=== PATIENT | male | born 1995 | race African-American/Black ===

== ENCOUNTER 2019-07-07 12:39 | Emergency (ER) | payer OTHER ==
[~2019-07-07] VITALS: Ht 177.8 cm; Wt 70.3 kg
[2019-07-07 12:50] VITALS: BP 117/73
--- NOTE | 2019-07-07 14:22 | Emergency Room Report ---
History of Present Illness General Chief Complaint: Flu Like Symptoms Source: Patient Present Illness HPI 23-year-old male presents to the emergency department complaining of nonpainful persistent cough only at nighttime with difficulty sleeping x2.5 weeks. Patient denies fevers or chills he reports history of family members with sleep apnea he states that he is never experienced difficulty with sleeping in the past. He reports waking up and coughing up mucus in the middle the night and in the morning. Patient states he is symptom-free during the day. He denies abdominal pain or epigastric burning sensation he denies history of acid reflux. Patient denies recent travel or ill contacts. He denies any other symptoms at this time and denies any other aggravating or relieving factors. Allergies: Coded Allergies: No Known Allergies (Unverified , 07/07/19) Patient History Past Medical History: see triage record Past Surgical History: none Pertinent Family History: none Reviewed Nursing Documentation: PMH: Agreed; PSxH: Agreed Nursing Documentation-PMH Past Medical History: No Stated History Review of Systems All Other Systems: negative except mentioned in HPI Physical Exam Vital Signs Date Time Temp Pulse Resp B/P (MAP) Pulse Ox O2 Delivery O2 Flow Rate FiO2 07/07/19 12:47 97.5 72 18 117/73 (88) 97 Room Air Sp02 EP Interpretation: reviewed, normal General Appearance: no apparent distress, alert, GCS 15, non-toxic Head: normocephalic, atraumatic Eyes: bilateral eye normal inspection, bilateral eye PERRL ENT: hearing grossly normal, normal voice, TMs + canals normal Neck: full range of motion Respiratory: chest non-tender, lungs clear, normal breath sounds, no respiratory distress, no accessory muscle use, no wheezing, speaking full sentences Cardiovascular #1: regular rate, rhythm, no edema, normal capillary refill Gastrointestinal: non tender, soft Rectal: deferred Genitourinary: normal inspection Musculoskeletal: normal range of motion, gait/station normal, non-tender Neurologic: alert, motor strength/tone normal, oriented x3, sensory intact, responsive, speech normal Psychiatric: judgement/insight normal Skin: normal color Lymphatic: no adenopathy Medical Decision Making PA Attestation Dr. Randhawa Is my supervising Physician whom patient management has been discussed with. Diagnostic Impression: Primary Impression: Nocturnal cough ER Course 23-year-old male presents to the emergency department complaining of nonpainful persistent cough only at nighttime with difficulty sleeping x2.5 weeks. Patient denies fevers or chills he reports history of family members with sleep apnea he states that he is never experienced difficulty with sleeping in the past. He reports waking up and coughing up mucus in the middle the night and in the morning. Patient states he is symptom-free during the day. He denies abdominal pain or epigastric burning sensation he denies history of acid reflux. Patient denies recent travel or ill contacts. He denies any other symptoms at this time and denies any other aggravating or relieving factors. Ddx considered but are not limited to URI, pneumonia, PE, strep pharyngitis, meningitis, bronchitis, postnasal drainage, acid reflux just name a few Vital signs: Pt. is afebrile, the remaining VS are WNL H&PE are most consistent with URI- no meningeal signs, oropharynx is not involved, no evidence of bacterial infection at this time. LUNGS are CTA bilaterally ORDERS: none required at this time, the diagnosis is clinical ED INTERVENTIONS: None required at this time. I also discussed with this patient that the most common cause of chronic cough at nighttime is acid reflux and therefore he will be treated conservatively for this. -I do not identify an emergent condition at this time. With current presentation , pt. is stable for close outpatient follow up and conservative treatment. D/ w pt. to return promptly to ED with worsening or new symptoms.- Pt. verbalizes' understanding and agreement with proposed treatment plan. DISCHARGE: At this time pt. is stable for d/c to home. Will provide printed patient care instructions, and any necessary prescriptions. Care plan and follow up instructions have been discussed with the patient prior to discharge. Last Vital Signs Date Time Temp Pulse Resp B/P (MAP) Pulse Ox O2 Delivery O2 Flow Rate FiO2 07/07/19 12:47 97.5 72 18 117/73 (88) 97 Room Air Disposition: HOME, SELF-CARE Condition: Stable Scripts No Active Prescriptions or Reported Meds Referrals: [facility] Patient Instructions: Cough, Adult, [id number], Food Choices for Gastroesophageal Reflux Disease, Adult, Medical Screening Exam Additional Instructions: ~ ~ An emergent medical condition has not been identified based on this patients presentation, exam and any necessary testing/imaging. The patient is determined to be stable for outpatient follow-up and management of symptoms by a primary care provider. Take medications as directed. Follow up with a Primary Care Provider in 3-5 days, even if your symptoms have resolved. --Please review list of primary care clinics, if you do not already have a primary care provider Return sooner to ED if new symptoms occur, or current symptoms become worse. - Please note that this Emergency Department Report was dictated using Gogoyokosensitized paper tester technology software, occasionally this can lead to erroneous entry secondary to interpretation by the dictation equipment. Nicole Molina Jul 07, 2019 14:22
[2019-07-07] MEDS ORDERED: PROMETHAZINE-D118 ML ORAL (14:23)
[2019-07-07] MEDS ORDERED: ZANTAC150 MG ORAL (14:23)
[2019-07-07 14:33] VITALS: BP 120/72
--- NOTE | 2019-07-07 14:33 | NUR ---
ER DISCHARGE NOTE: Patient is cleared to be discharged per ERMD, pt is aox4, on room air, with stable vital signs. pt was given dc and prescription instructions, pt was able to verbalize understanding, pt id removed. pt is able to ambulate with steady gait. pt took all belongings.
== END 2019-07-07 14:33 | disposition home or self-care (01) ==
LOC: EMR 13:32
DX: R05 Cough (principal)
CPT/HCPCS: 99282

== ENCOUNTER 2019-07-22 15:24 | Emergency (ER) | payer OTHER ==
[~2019-07-22] VITALS: Ht 177.8 cm; Wt 72.6 kg
[~2019-07-22 15:24] MED LIST: PROMETHAZINE-D118 ML ORAL; ZANTAC150 MG ORAL
[2019-07-22 15:26] VITALS: BP 118/72
--- NOTE | 2019-07-22 15:36 | NUR ---
ED Nurse Note: Pt from home walked in due to CP and non radiating x weeks. States dizziness but no N/V. Chest is more painful when doing an activity. AAO x4, ambulatory with non labored breathing.
--- NOTE | 2019-07-22 15:44 | Emergency Room Report ---
History of Present Illness General Chief Complaint: Chest Pain Source: Patient Present Illness HPI 23-year-old male with no segment past medical history here complaining of cough and congestion. Patient was seen at [facility] recently for similar symptoms. However no chest x-ray was done. Patient denies any recent travel, fever and chills, coming contact with patients with recent travel. Has not taken medication for symptom relief. Patient has not yet follow-up with primary care provider. Complains of minimal wheezing. Reports that the cough is worse at nighttime. Denies drug use, tobacco smoke, alcohol intake. Allergies: Coded Allergies: No Known Allergies (Unverified , 07/07/19) Patient History Past Medical History: see triage record Past Surgical History: unable to obtain Pertinent Family History: none Social History: Reports: drug use - marijuana Immunizations: UTD Reviewed Nursing Documentation: PMH: Agreed; PSxH: Agreed Nursing Documentation-PMH Past Medical History: No Stated History Review of Systems All Other Systems: negative except mentioned in HPI Physical Exam Vital Signs Date Time Temp Pulse Resp B/P (MAP) Pulse Ox O2 Delivery O2 Flow Rate FiO2 07/22/19 15:26 98.4 69 16 118/72 (87) 97 Room Air Sp02 EP Interpretation: reviewed, normal General Appearance: no apparent distress, alert, GCS 15, non-toxic Head: normocephalic, atraumatic Eyes: bilateral eye normal inspection, bilateral eye PERRL ENT: hearing grossly normal, normal pharynx, no angioedema, normal voice Neck: full range of motion, supple, thyroid normal, no meningismus, supple/symm /no masses Respiratory: chest non-tender, lungs clear, no rhonchi, no retraction, no accessory muscle use, speaking full sentences, wheezing - Minor wheezing noted diffusely Cardiovascular #1: regular rate, rhythm, no edema, no murmur, normal capillary refill Gastrointestinal: soft, no bruit Rectal: deferred Genitourinary: no CVA tenderness Musculoskeletal: back normal, no calf tenderness Neurologic: alert, motor strength/tone normal, oriented x3, sensory intact, responsive, speech normal Psychiatric: judgement/insight normal, memory normal, mood/affect normal, no suicidal/homicidal ideation Skin: no rash Lymphatic: no adenopathy Medical Decision Making PA Attestation All my diagnosis and treatment plans were reviewed ad discussed with my supervising physician Dr. Farrar Diagnostic Impression: Primary Impression: Pneumonitis ER Course 23-year-old male with no segment past medical history here complaining of cough and congestion. Patient was seen at [facility] recently for similar symptoms. However no chest x-ray was done. Patient denies any recent travel, fever and chills, coming contact with patients with recent travel. Has not taken medication for symptom relief. Patient has not yet follow-up with primary care provider. Complains of minimal wheezing. Reports that the cough is worse at nighttime. Denies drug use, tobacco smoke, alcohol intake. Ddx considered but are not limited to: bronchitis, PNA, URI viral, bacterial bronchitis, pneumonitis Vital signs: are WNL, pt. is afebrile H&PE are most consistent with: Pneumonitis. ORDERS:CXR, azithromycin, Phenergan DM for bedtime, guaifenesin, Medrol Dosepak ED INTERVENTIONS: None required at this time. DISCHARGE: At this time pt. is stable for d/c to home. Will provide printed patient care instructions, and any necessary prescriptions. Care plan and follow up instructions have been discussed with the patient prior to discharge. Take medication as directed, follow-up with your primary care provider, increase oral hydration, if worsening symptoms return to the emergency room Chest X-Ray Diagnostic Results Chest X-Ray Diagnostic Results : Chest X-Ray Ordered: Yes # of Views/Limited/Complete: 1 View Indication: Other - cough PA Xray: Interpretation reviewed, by supervising MD, and agrees with findings. Interpretation: no consolidation, no effusion, no pneumothorax Impression: No acute disease Electronically Signed by: Irais Wilkinson PA-C Last Vital Signs Date Time Temp Pulse Resp B/P (MAP) Pulse Ox O2 Delivery O2 Flow Rate FiO2 07/22/19 15:26 98.4 69 16 118/72 (87) 97 Room Air Disposition: HOME, SELF-CARE Condition: Stable Scripts Methylprednisolone (Methylprednisolone*) 4MG Dspk 4 MG ORAL DIRECTED for 6 Days, #21 EA 0 Refills Day 1: Two tablets before breakfast, one after lunch, one after dinner, and two at bedtime. If started late in the day, take all six tablets at once or divide into two or three doses, unless otherwise directed by prescriber. Day 2: One tablet before breakfast, one after lunch, one after dinner, and two at bedtime Day 3: One tablet before breakfast, one after lunch, one after dinner, and one at bedtime Day 4: One tablet before breakfast, one after lunch, and one at bedtime Day 5: One tablet before breakfast and one at bedtime Day 6: One tablet before breakfast Prov: Irais Haynes 07/22/19 Albuterol Sulfate (VENTOLIN HFA) 18 Gm Hfa.aer.ad 2 PUFFS INH EVERY 6 HOURS, #18 GM 0 Refills Prov: Irais Haynes 07/22/19 Guaifenesin* (GUAIFENESIN*) 100 Mg/5 Ml Liquid 15 ML ORAL Q6H, #120 ML 0 Refills Prov: Irais Haynes 07/22/19 D-Methorphan Hb/Prometh Hcl* (PROMETHAZINE-DM SYRUP*) 118 Ml Syrup 5 ML ORAL BEDTIME PRN for For Cough, #120 ML 0 Refills Prov: Irais Haynes 07/22/19 Azithromycin* (ZITHROMAX*) 250 Mg Tablet 250 MG ORAL DAILY, #6 TAB 0 Refills Take two tables once daily for 1 day, then one tablet once daily for 4 days. Prov: Irais Haynes 07/22/19 Patient Instructions: Nonspecific Chest Pain, Pneumonitis Additional Instructions: Take medication as directed, follow with primary care provider, increase oral hydration, if worsening symptoms return to the emergency room Irais Haynes Jul 22, 2019 15:44
[2019-07-22] MEDS ORDERED: ZITHROMAX250 MG ORAL (15:54)
[2019-07-22] MEDS ORDERED: GUAIFENESI100 MG/5 M ORAL (15:54)
[2019-07-22] MEDS ORDERED: PROMETHAZINE-D118 ML ORAL (15:54)
[2019-07-22] MEDS ORDERED: MEDROL DOSEPAK4 MG ORAL (15:54)
[2019-07-22] MEDS ORDERED: VENTOLIN HFA18 GM INH (15:54)
--- NOTE | 2019-07-22 16:05 | Diagnostic Imaging Report ---
Indication: Dyspnea Comparison: None A single view chest radiograph was obtained. Findings: Cardiomediastinal appearance is within normal limits for age. The lungs are clear. Pulmonary vascularity is appropriate. The diaphragmatic contour is smooth and costophrenic angles are sharp. No pleural effusions are identified. The bones are unremarkable. Impression: No acute findings
[2019-07-22 16:13] VITALS: BP 120/75
--- NOTE | 2019-07-22 16:13 | NUR ---
ER DISCHARGE NOTE: Patient is cleared to be discharged per ERMD, pt is aox4, on room air, with stable vital signs. pt was given dc and prescription instructions, pt was able to verbalize understanding, pt id band removed. pt is able to ambulate with steady gait. pt took all belongings.
== END 2019-07-22 16:13 | disposition home or self-care (01) ==
LOC: EMR 15:47
DX: J18.9 Pneumonia, unspecified organism (principal)
CPT/HCPCS: 71045; Z7502; 99283

== ENCOUNTER 2019-09-11 11:46 | Emergency (ER) | payer OTHER ==
[~2019-09-11] VITALS: Ht 182.9 cm; Wt 71.2 kg
[~2019-09-11 11:46] MED LIST changes: +GUAIFENESI100 MG/5 M ORAL; +MEDROL DOSEPAK4 MG ORAL; +VENTOLIN HFA18 GM INH; +ZITHROMAX250 MG ORAL
[2019-09-11 11:53] VITALS: BP 100/69
--- NOTE | 2019-09-11 12:03 | NUR ---
ED Nurse Note: Pt walked in due to CP and ocassional coughing with mucus at night and when waking up for months. also c/o throat discomfort. AAO x4 and ambulatory, speaks in clear sentences.
--- NOTE | 2019-09-11 13:22 | Emergency Room Report ---
History of Present Illness General Chief Complaint: Chest Pain Source: Patient Present Illness HPI 23-year-old male with history of of chronic cough here complaining of worsening cough as well as chest pain posttussive. Denies any shortness of breath, headache and dizziness, fever and chills, abdominal pain, nausea vomiting diarrhea. Reports that he has been staying home ever since quarantine started. Patient has been here multiple times due to chronic cough and keeps asking for Phenergan with codeine. Also reports to have increased doses of prescribed medication as he believes that we are doing something wrong and not dosing incorrectly. Patient has never follow-up primary doctor. Continues to smoke marijuana. Sitting comfortably with normal O2 sat and is afebrile. Allergies: Coded Allergies: No Known Allergies (Unverified , 07/07/19) COVID-19 Screening Contact w/high risk pt: No Recent Travel to affected area: No Experienced COVID-19 symptoms?: Yes COVID-19 symptoms experienced: Cough Patient History Past Medical History: see triage record Past Surgical History: none Pertinent Family History: none Reviewed Nursing Documentation: PMH: Agreed; PSxH: Agreed Nursing Documentation-PMH Past Medical History: No Stated History Review of Systems All Other Systems: negative except mentioned in HPI Physical Exam Vital Signs Date Time Temp Pulse Resp B/P (MAP) Pulse Ox O2 Delivery O2 Flow Rate FiO2 09/11/19 11:53 96.1 71 16 100/69 96 Room Air Sp02 EP Interpretation: reviewed, normal General Appearance: no apparent distress, alert, GCS 15, non-toxic Head: normocephalic, atraumatic Eyes: bilateral eye normal inspection, bilateral eye PERRL ENT: normal ENT inspection, normal voice Neck: full range of motion, supple/symm/no masses Respiratory: normal inspection, speaking full sentences Cardiovascular #1: normal inspection Gastrointestinal: normal inspection Musculoskeletal: normal inspection Neurologic: alert, motor strength/tone normal, oriented x3, sensory intact, responsive, speech normal Psychiatric: judgement/insight normal, memory normal, mood/affect normal, no suicidal/homicidal ideation Skin: no rash Lymphatic: normal inspection Medical Decision Making PA Attestation All my diagnosis and treatment plans were reviewed ad discussed with my supervising physician Dr. Cheung Diagnostic Impression: Primary Impression: Chronic cough ER Course 23-year-old male with history of of chronic cough here complaining of worsening cough as well as chest pain posttussive. Denies any shortness of breath, headache and dizziness, fever and chills, abdominal pain, nausea vomiting diarrhea. Reports that he has been staying home ever since quarantine started. Patient has been here multiple times due to chronic cough and keeps asking for Phenergan with codeine. Also reports to have increased doses of prescribed medication as he believes that we are doing something wrong and not dosing incorrectly. Patient has never follow-up primary doctor. Continues to smoke marijuana. Sitting comfortably with normal O2 sat and is afebrile. Ddx considered but are not limited to: bronchitis, PNA, URI viral, bacterial bronchitis, coronavirus, chronic cough Vital signs: are WNL, pt. is afebrile H&PE are most consistent with: Chronic cough ORDERS: Chest x-ray, EKG, Phenergan DM, albuterol ED INTERVENTIONS: None required at this time. DISCHARGE: At this time pt. is stable for d/c to home. Will provide printed patient care instructions, and any necessary prescriptions. Care plan and follow up instructions have been discussed with the patient prior to discharge.Follow-up with your primary care provider for referral to a specialist as you have nonspecific chest pain and chronic cough. At this time no fever testing can be done as you have had this cough for several months and have had repeated normal chest x-ray on presentation, vital signs. Follow-up with your primary care provider. If worsening symptoms such as shortness of breath, respiratory distress return to emergency room. Take medication as directed, follow-up with your primary doctor, you need to stay home for self quarantine due to Covid 19 precautions for 14 days EKG Diagnostic Results Rate: normal Rhythm: NSR ST Segments: no acute changes Other Impression No acute ST changes Chest X-Ray Diagnostic Results Chest X-Ray Diagnostic Results : Chest X-Ray Ordered: Yes # of Views/Limited/Complete: 1 View Indication: Other - Chronic cough EP Interpretation: Yes YESICA Xray: Interpretation reviewed, by supervising MD, and agrees with findings. Interpretation: no consolidation, no effusion, no pneumothorax Impression: No acute disease Electronically Signed by: Irais Wilkinson PA-C Last Vital Signs Date Time Temp Pulse Resp B/P (MAP) Pulse Ox O2 Delivery O2 Flow Rate FiO2 09/11/19 12:03 71 16 Room Air 09/11/19 11:53 96.1 100/69 (49) 96 Disposition: HOME, SELF-CARE Condition: Stable Scripts Albuterol Sulfate (VENTOLIN HFA) 18 Gm Hfa.aer.ad 2 PUFFS INH EVERY 6 HOURS, #18 GM 0 Refills Prov: Irais Haynes 09/11/19 D-Methorphan Hb/Prometh Hcl* (PROMETHAZINE-DM SYRUP*) 118 Ml Syrup 5 ML ORAL BEDTIME PRN for For Cough, #120 ML 0 Refills Prov: Irais Haynes 09/11/19 Patient Instructions: Nonspecific Chest Pain Additional Instructions: Follow-up with your primary care provider for referral to a specialist as you have nonspecific chest pain and chronic cough. At this time no fever testing can be done as you have had this cough for several months and have had repeated normal chest x-ray on presentation, vital signs. Follow-up with your primary care provider. If worsening symptoms such as shortness of breath, respiratory distress return to emergency room. Take medication as directed, follow-up with your primary doctor, you need to stay home for self quarantine due to Covid 19 precautions for 14 days Irais Haynes Sep 11, 2019 13:22
[2019-09-11] MEDS ORDERED: PROMETHAZINE-D118 ML ORAL (13:23)
[2019-09-11] MEDS ORDERED: VENTOLIN HFA18 GM INH (13:23)
--- NOTE | 2019-09-11 13:29 | NUR ---
discharged home with instruction to follow up with pmd and continue to take meds as orderd
[2019-09-11 13:30] VITALS: BP 100/69
--- NOTE | 2019-09-11 13:44 | Diagnostic Imaging Report ---
Indication: Shortness of breath Technique: One view of the chest Comparison: 07/22/2019 Findings: Lungs and pleural spaces are clear. Heart size is normal. No significant change Impression: No acute process
== END 2019-09-11 13:30 | disposition home or self-care (01) ==
LOC: EMR 13:22
DX: R05 Cough (principal); R07.9 Chest pain, unspecified; F12.90 Cannabis use, unspecified, uncomplicated
CPT/HCPCS: 71045; 93005; Z7502; 99283

== ENCOUNTER 2019-09-29 13:23 | Emergency (ER) | payer OTHER ==
[~2019-09-29] VITALS: Ht 177.8 cm; Wt 72.6 kg
[2019-09-29 13:30] VITALS: BP 114/75
--- NOTE | 2019-09-29 13:39 | NUR ---
ED Nurse Note: Pt walked in due to mid CP for weeks, coughing ocasionally and states he is unable to sleep. Denies dizziness or SOB. AAO x4 and ambulatory with non labored breathing. Irais/YESICA notified of CP.
--- NOTE | 2019-09-29 14:47 | Diagnostic Imaging Report ---
EXAM: XR Chest, 1 View CLINICAL HISTORY: COUGH TECHNIQUE: Frontal view of the chest. COMPARISON: Chest radiograph for FINDINGS: Hardware: None. Lungs/pleura: Hyperinflation of the lungs. No focal consolidation. No pleural effusion or pneumothorax. Heart/mediastinum: Normal. No cardiomegaly. Soft tissues: Unremarkable. Bones: No acute fracture. Upper abdomen: Normal. IMPRESSION: No acute disease identified.
--- NOTE | 2019-09-29 15:05 | Emergency Room Report ---
History of Present Illness General Chief Complaint: Chest Pain Source: Patient Present Illness HPI 23-year-old male with history of chronic cough who has been here multiple times in the past several weeks here complaining of cough and chest pain times several weeks. Patient has been told many times in past visits that she needs to follow-up with primary doctor however he is reporting that since he does not drive it is easier for him to come here and he has not yet established a primary doctor. Patient continues to smoke marijuana. Denies any generalized body ache, fever and chills, shortness of breath, abdominal pain, nausea vomiting diarrhea. Patient keeps repeating that we need higher doses of medication for him and also needs Phenergan with codeine. Patient also reports that he needs something to help him sleep at night. Drug-seeking has been since. Patient was witnessed to be smoking marijuana in the parking lot. However he denies smoking any marijuana recently. Allergies: Coded Allergies: DEXTROMETHORPHAN (Verified Allergy, Unknown, 09/29/19) COVID-19 Screening Contact w/high risk pt: No Recent Travel to affected area: No Experienced COVID-19 symptoms?: Yes COVID-19 symptoms experienced: Cough Patient History Past Medical History: see triage record Past Surgical History: none Pertinent Family History: none Social History: Reports: smoking, drug use - Marijuana use Immunizations: UTD Reviewed Nursing Documentation: PMH: Agreed; PSxH: Agreed Nursing Documentation-PMH Past Medical History: No Stated History Review of Systems All Other Systems: negative except mentioned in HPI Physical Exam Vital Signs Date Time Temp Pulse Resp B/P (MAP) Pulse Ox O2 Delivery O2 Flow Rate FiO2 09/29/19 13:30 98.1 62 18 114/75 (88) 96 Room Air Sp02 EP Interpretation: reviewed, normal General Appearance: no apparent distress, alert, GCS 15, non-toxic Head: normocephalic, atraumatic Eyes: bilateral eye normal inspection, bilateral eye PERRL ENT: hearing grossly normal, normal pharynx, no angioedema, normal voice Neck: full range of motion, supple/symm/no masses Respiratory: chest non-tender, lungs clear, normal breath sounds, no rhonchi, speaking full sentences Cardiovascular #1: regular rate, rhythm, no edema Gastrointestinal: non tender, soft Rectal: deferred Genitourinary: no CVA tenderness Musculoskeletal: back normal Neurologic: alert, motor strength/tone normal, oriented x3, sensory intact, responsive, speech normal Psychiatric: judgement/insight normal, memory normal, mood/affect normal, no suicidal/homicidal ideation Skin: no rash Lymphatic: no adenopathy Medical Decision Making PA Attestation All diagnoses and treatment plans were reviewed and discussed with my supervising physician Dr. Farrar Diagnostic Impression: Primary Impression: Chronic cough ER Course 23-year-old male with history of chronic cough who has been here multiple times in the past several weeks here complaining of cough and chest pain times several weeks. Patient has been told many times in past visits that she needs to follow-up with primary doctor however he is reporting that since he does not drive it is easier for him to come here and he has not yet established a primary doctor. Patient continues to smoke marijuana. Denies any generalized body ache, fever and chills, shortness of breath, abdominal pain, nausea vomiting diarrhea. Patient keeps repeating that we need higher doses of medication for him and also needs Phenergan with codeine. Patient also reports that he needs something to help him sleep at night. Drug-seeking has been since. Patient was witnessed to be smoking marijuana in the parking lot. However he denies smoking any marijuana recently. Ddx considered but are not limited to: bronchitis, PNA, URI viral, bacterial bronchitis Vital signs: are WNL, pt. is afebrile H&PE are most consistent with: Chronic cough ORDERS: Chest x-ray, albuterol inhaler, Qvar ED INTERVENTIONS: None required at this time. DISCHARGE: At this time pt. is stable for d/c to home. Will provide printed patient care instructions, and any necessary prescriptions. Care plan and follow up instructions have been discussed with the patient prior to discharge. Gave a list frequently for patient to contact and go to to establish a primary doctor. At this time patient will not receive any more cough medication as has been drinking them on daily basis. Patient understand that he needs to follow-up with primary doctor due to chronic cough for possible referral to a specialist. Also advised to stop smoking marijuana Chest X-Ray Diagnostic Results Chest X-Ray Diagnostic Results : Chest X-Ray Ordered: Yes # of Views/Limited/Complete: 1 View Indication: Chest Pain EP Interpretation: Yes YESICA Xray: Interpretation reviewed, by supervising MD, and agrees with findings. Interpretation: no consolidation, no effusion, no pneumothorax Impression: No acute disease Electronically Signed by: Irais Wilkinson PA-C Last Vital Signs Date Time Temp Pulse Resp B/P (MAP) Pulse Ox O2 Delivery O2 Flow Rate FiO2 09/29/19 13:37 62 18 Room Air 09/29/19 13:30 98.1 114/75 96 Disposition: HOME, SELF-CARE Condition: Stable Scripts Beclomethasone Dipropionate 40MCG Oral Inh (QVAR 40*) 7.3 Gm Aer.w.adap 1 PUFF INH TWICE A DAY, #10 GM 0 Refills Prov: Irais Haynes 09/29/19 Albuterol Sulfate (VENTOLIN HFA) 18 Gm Hfa.aer.ad 2 PUFFS INH EVERY 6 HOURS, #18 GM 0 Refills Prov: Irais Haynes 09/29/19 Referrals: NON PHYSICIAN (PCP) Patient Instructions: Nonspecific Chest Pain Additional Instructions: Avoid smoking, you need to see a primary doctor, as your problem is chronic and you should not take stronger cough medication on daily basis. Chest x-ray looks within normal limits and looks the same compared to the chest x-ray that was done on you approximately 3 weeks ago at [facility]. Return to the emergency room if any respiratory distress Irais Haynes September 29, 2019 15:05
[2019-09-29] MEDS ORDERED: QVAR7.3 GM INH (15:06)
[2019-09-29] MEDS ORDERED: VENTOLIN HFA18 GM INH (15:06)
[2019-09-29 15:16] VITALS: BP 120/70
--- NOTE | 2019-09-29 15:16 | NUR ---
ER DISCHARGE NOTE: Patient is cleared to be discharged per ERMD, pt is aox4, on room air, with stable vital signs. pt was given dc and prescription instructions, pt was able to verbalize understanding, pt id band removed without complications. pt is able to ambulate with steady gait. pt took all belongings.
== END 2019-09-29 15:16 | disposition home or self-care (01) ==
LOC: EMR 13:44
DX: R05 Cough (principal); R07.9 Chest pain, unspecified; Z88.8 Allergy status to other drugs, medicaments and biological substances; F17.200 Nicotine dependence, unspecified, uncomplicated; F12.90 Cannabis use, unspecified, uncomplicated
CPT/HCPCS: 71045; Z7502; 99283